=== PATIENT | female | born 2000 | race Caucasian/White ===

== ENCOUNTER 2024-12-05 07:05 | Emergency (ER) | payer BC, SELFPAY ==
[2024-12-05 07:08] VITALS: BP 105/64
[2024-12-05 07:22] VITALS: BMI 26.6
--- NOTE | 2024-12-05 07:32 | ED.GENMED ---
History of Present Illness
General
Chief Complaint: Skin Surface Trauma
Source: patient
Exam Limitations: none
Time Seen by Provider: 12/05/24 07:16
History of Present Illness
History of Present Illness:
See MDM
Past History
Past History
ED Past Medical History: None
ED Past Surgical History: None
Social History
Tobacco: Non-smoker
Alcohol: None
Phy Exam
Physical Exam
Physical Exam:
See MDM
Course
Vital Signs
Initial and Last Documented VS:
Initial Vital Signs
Temp Pulse BP Pulse Ox
98.5 F 82 105/64 97
12/05/24 07:08 12/05/24 07:08 12/05/24 07:08 12/05/24 07:08
Last Documented Vital Signs
Temp Pulse BP Pulse Ox
98.5 F 82 105/64 97
12/05/24 07:08 12/05/24 07:08 12/05/24 07:08 12/05/24 07:08
Procedures
Laceration Closure
Left Palmar Hand:
Status of Wound: clean
Size of Wound in cm: 1
Description of Wound Edges: sharp
Preparation: cleaned with saline and cleaned with Betadine
Revision/Debridement: routine- no revision
Wound exploration: explored to base- no FB
Type of Closure: Dermabond-skin glue
MDM/Problems Addressed
Differential Diagnosis Includes:
Note:
CHIEF COMPLAINT(S)
Laceration to the left hand due to a knife injury while cutting a peach.
HISTORY OF PRESENT ILLNESS
The patient is a 24-year-old female who presented with a laceration to the left hand sustained while slicing a peach with a newly purchased, sharp knife. The incident occurred when the patient repositioned the knife, resulting in a superficial cut.
The patient reports mild tenderness in the affected finger, with no significant pain upon movement. She described the sensitivity as due to the 'tension of the skin.' Motor function has been retained, as evidenced by normal strength and range of
motion in the involved fingers. 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 The decision was made to clean the wound thoroughly with betadine and then apply medical glue. Stitches were
deemed unnecessary. The patient was advised not to apply neosporin as it could dissolve the glue.
PHYSICAL EXAM
General: Alert, no acute distress.
Eyes, Ears, Nose, Mouth, and Throat: Oral mucosa moist.
Cardiovascular: No signs of cyanosis
Respiratory: Respirations are non-labored.
Musculoskeletal: Superficial laceration to the palmar aspect of left hand measuring approximately 1 cm no active bleeding. No evidence of flexor tendon involvement on exam
Neurological: Sensation appears intact to left hand
Psychiatric: Cooperative, appropriate mood and affect.
PLAN
The laceration was cleansed with betadine, followed by the application of medical glue to secure the wound. The patient was advised to avoid using neosporin on the glued area to prevent the glue from dissolving. An education on signs of infection
was provided, and the patient was informed about potential need for reevaluation should any infection symptoms arise. The patient was also given extra gauze and betadine for use at home. Confirmed that the patients tetanus immunization is up to date.
DIFFERENTIAL DIAGNOSIS
The Differential Diagnosis includes, in no particular order and is not limited to:
1. Superficial laceration of the skin
2. Tendon injury (although unlikely given current presentation)
3. Infection potential from skin rica
4. Foreign body retention in the wound
5. Hematoma formation from soft tissue injury
6. Psychological stress or anxiety associated with the injury
7. Bone fracture (ruled out through examination)
8. Abrasion or contusion of surrounding tissues
9. Scar formation potential
10. Hypersensitivity reaction to medical glue or betadine application
Disposition:
SUMMARY OF ENCOUNTER
The patient, a 24-year-old female, presented with a superficial laceration on her left hand, caused by a knife while cutting a peach. The laceration was easily managed with the application of topical skin adhesive, Dermabond, indicating no evidence
of deeper ligamentous injury. The wound was thoroughly irrigated with saline and betadine to minimize the risk of infection.
DISPOSITION
Discharge
ASSESSMENT
Superficial laceration on the left hand.
PLAN
The wound was cleansed thoroughly with saline and betadine and secured using Dermabond. The patient was educated on signs of infection and given return precautions. She was provided with extra gauze and betadine for home care.
PATIENT EDUCATION AND COUNSELING
The patient was informed about the ease with which hand cuts can become infected. She was educated on monitoring for signs of infection and was also given return precautions should any symptoms arise.
FOLLOW-UP INSTRUCTIONS
The patient was instructed to monitor the wound for any signs of infection and return for further evaluation if necessary.
MEDICAL DECISION MAKING
1. Number and Complexity of Problems Addressed: Chronic conditions affecting care: None mentioned. Differential Diagnosis includes:
- Superficial laceration of the skin
- Tendon injury (unlikely given presentation)
- Infection potential from skin rica
- Foreign body retention in the wound
- Hematoma formation from soft tissue injury
- Psychological stress or anxiety related to injury
- Bone fracture (ruled out)
- Abrasion or contusion of surrounding tissues
- Scar formation potential
- Hypersensitivity reaction to medical glue or betadine application
2. Data:
Category 1: Non-emergency department records reviewed, if applicable.
Category 2: My independent interpretation indicates that there was no ligamentous injury noted.
Category 3: None mentioned.
3. Risk: Prescription medication was not prescribed. Care significantly affected by Social Determinants of Health: None mentioned.
DIAGNOSIS
Superficial laceration of the left hand (ICD-10: S61.410A).
*Pulse Oximetry
SaO2: 97
Oxygen Mode of Delivery: Room air
Patient hypoxic: no
*Critical Care Note
Total Time (30-74mins, 75-104mins- exclusive of procedures): Not Applicable
ED Attending Note
-
Portions of this chart may have been created with voice recognition software.� Occasional wrong word or��sound alike� substitutions may have occurred due to the inherent limitations of voice recognition software.
Discharge Plan
Departure
Patient Disposition: Home (Routine Discharge)
Date of Disposition: 12/05/24
Time of Disposition: 07:35
Patient with high blood pressure during this ER visit?: No
Discharge Problem:
Laceration of superficial palmar arch of left hand, initial encounter
Instructions: Laceration Repair With Glue (DC)
Activity Restrictions/Additional Instructions:
Your wound was fixed with derma-marcus. This is a special glue that holds a wound closed similar to stitches. This type of wound closure will eventually fall off by itself and does not need to be removed. You may wash the area very gently, but do not
scrub or pick at the glue. Watch for signs of infection: fever over 100.5', increasing pain, red streaks around wound, swelling, drainage of pus, or bad smell. If any of these happen, return to ED promptly. All wounds may scar, however you may
reduce the appearance of scarring by avoiding sun exposure to the scar and applying skin moisturizer with spf protection to the scar once the wound is healed.
Interventions
Interventions:
*Risk Screen - Suicide Last Done: 12/05/24 07:11
*Neglect/Abuse Screening Last Done: 12/05/24 07:11
*ED- Fall Risk Assessment Last Done: 12/05/24 07:22
*ED COVID-19 Vaccine History Last Done: 12/05/24 07:22
ED-Skin Assessment Last Done: 12/05/24 07:22
Discharge Date and Time
Print Language: PALAUAN
== END 2024-12-05 08:01 | disposition home or self-care (01) ==
LOC: EMR 07:05
PROVIDERS: EMERGENCY PHYSICIAN Student in an Organized Health Care Education/Training Program; FAMILY PHYSICIAN Family Medicine
DX: S65.212A Laceration of superficial palmar arch of left hand, initial encounter (principal); W26.0XXA Contact with knife, initial encounter
CPT/HCPCS: 99282; 12001